=== PATIENT | male | born 1960 | race Hispanic/Latino ===

== ENCOUNTER 2016-08-07 22:32 | Emergency (ER) | payer OTHER ==
[2016-08-07 22:49] VITALS: RESP 18
[2016-08-07 23:18] VITALS: BP 148/88; PULSE 58; TEMP 98.3; O2SAT 98
--- NOTE | 2016-08-07 23:30 | C.PDOC ---
History Of Present Illness Pt had an injection for impotence by Dr. Deon grant and now has an erection that will not resolve. Time Seen by Provider: 08/07/16 22:41 Chief Complaint (Nursing): Male Genitourinary History Per: Patient Onset/Duration Of Symptoms: Hrs (4) Current Symptoms Are (Timing): Still Present Severity: Moderate Alleviating Factors: None Additional History Per: Prior Records Past Medical History Reviewed: Historical Data, Nursing Documentation, Vital Signs Vital Signs: Last Vital Signs Temp 98.3 F 08/07/16 23:17 Pulse 58 L 08/07/16 23:17 Resp 18 08/07/16 23:17 BP 148/88 08/07/16 23:17 Pulse Ox 98 08/07/16 23:17 - Medical History PMH: No Chronic Diseases Surgical History: Appendectomy Family History: States: Unknown Family Hx - Social History Hx Tobacco Use: No Hx Alcohol Use: Yes Hx Substance Use: No - Immunization History Hx Tetanus Toxoid Vaccination: No Hx Influenza Vaccination: No Hx Pneumococcal Vaccination: No Review Of Systems Except As Marked, All Systems Reviewed And Found Negative. Constitutional: Negative for: Fever Cardiovascular: Negative for: Chest Pain Respiratory: Negative for: Shortness of Breath Gastrointestinal: Negative for: Vomiting, Abdominal Pain Genitourinary: Positive for: Penile Pain (mild). Negative for: Scrotal Pain Musculoskeletal: Negative for: Neck Pain, Back Pain Skin: Negative for: Rash Neurological: Negative for: Weakness, Numbness, Seizures, Altered Mental Status Physical Exam - Physical Exam Appears: Non-toxic, No Acute Distress Skin: Normal Color, Warm, Dry, No Rash Head: Atraumatic, Normacephalic Eye(s): bilateral: PERRL, EOMI Neck: Normal ROM, Supple Cardiovascular: Rhythm Regular Respiratory: Normal Breath Sounds, No Accessory Muscle Use Gastrointestinal/Abdominal: Soft, No Tenderness Back: No CVA Tenderness Male Genital: No Testicular Tenderness, No Testicular Swelling, No Inguinal Tenderness, No Inguinal Swelling, No Scrotal Swelling, Other (erect penis) Extremity: Normal ROM Neurological/Psych: Oriented x3, Normal Motor, Normal Sensation ED Course And Treatment O2 Sat by Pulse Oximetry: 98 Pulse Ox Interpretation: Normal Progress Note: Upon arrival of Dr. Nina in the ED. Erection is now resolving spontaneously. Reassessment Condition: Improved Disposition Counseled Patient/Family Regarding: Diagnosis, Need For Followup - Disposition Referrals: Mike Nina MD [Staff Provider] - Disposition: HOME/ ROUTINE Disposition Time: 23:31 Condition: IMPROVED Additional Instructions: Follow up with your doctor. Return to the ER right away if you develop an erection that does not resolve spontaneously within less than 4 hours. Instructions: Priapism (ED) - Clinical Impression Clinical Impression: Drug-induced priapism
== END 2016-08-07 23:35 | disposition home or self-care (01) ==
LOC: C.ER 22:32 → SUPCPDRO 22:32 → C.ER 23:35
DX: N48.33 Priapism, drug-induced (principal)